=== PATIENT | female | born 1985 ===

== ENCOUNTER 2016-09-14 09:48 | Emergency (ER) | payer OTHER ==
[2016-09-14 10:09] VITALS: O2SAT 99
[2016-09-14] MEDS ORDERED: Iohexol 240 (50 ml) PO STA (10:44)
[2016-09-14] MEDS ORDERED: Sodium Chloride 0.9% 1,000 ML IV STA (10:45)
[2016-09-14] MEDS ORDERED: Iohexol 240 (50 ml) ONE (11:18)
[2016-09-14] MEDS ORDERED: Sodium Chloride 0.9% 1,000 ML ONE (11:18)
[2016-09-14 11:22] LABS: BASO # 0.1 K/uL (0.0-0.2); BASO % 0.6 % (0.0-2.0); EOS # 0.2 K/uL (0.0-0.7); EOS % 1.8 % (0.0-4.0); HEMATOCRIT 36.5 % (34.0-47.0); LYMPH # 2.3 K/uL (1.0-4.3); LYMPH % 24.1 % (20.0-40.0); MEAN CELL VOLUME 81.1 fL (81.0-99.0); MEAN CORPUSCULAR HEMOGLOBIN 27.4 pg (27.0-31.0); MEAN CORPUSCULAR HGB CONC 33.7 g/dL (33.0-37.0); MEAN PLATELET VOLUME 8.7 fL (7.2-11.7); MONO # 0.6 K/uL (0.0-0.8); MONO % 6.4 % (0.0-10.0); RED CELL DISTRIBUTION WIDTH 12.7 % (11.5-14.5); WHITE BLOOD COUNT 9.4 K/uL (4.8-10.8)
[2016-09-14 11:27] LABS: CHLORIDE 101 mmol/L (98-107); POTASSIUM 3.8 mmol/L (3.6-5.2); SODIUM 138 mmol/L (132-148)
[2016-09-14 11:30] LABS: ALB/GLOB RATIO 1.2 (1.0-2.1); ALKALINE PHOSPHATASE 74 U/L (38-126); ALT/SGPT 77 U/L (9-52); AST/SGOT 61 U/L (14-36); BILIRUBIN,TOTAL 0.5 mg/dL (0.2-1.3); BLOOD UREA NITROGEN 11 mg/dL (7-17); CALCIUM 8.9 mg/dl (8.6-10.4); CARBON DIOXIDE 27 mmol/L (22-30); GFR AFRICAN-AMERICAN > 60; GLUCOSE,RANDOM 115 mg/dL (65-105); TOTAL PROTEIN 7.1 g/dL (6.3-8.3)
[2016-09-14 11:32] LABS: RBC URINE 1 /hpf (0-3); URINE BILIRUBIN NEGATIVE (NEGATIVE); URINE BLOOD NEGATIVE (NEGATIVE); URINE COLOR Yellow (YELLOW); URINE GLUCOSE (UA) NORMAL (Normal); URINE KETONE NEGATIVE (NEGATIVE); URINE LEUKOCYTE ESTERASE NEG Leu/uL (Negative); URINE PROTEIN NEGATIVE (NEGATIVE); URINE UROBILINOGEN NORMAL mg/dL (0.2-1.0); WBC URINE 1 /hpf (0-5)
--- NOTE | 2016-09-14 12:49 | C.PDOC ---
History Of Present Illness 31-year-old female, presents to the emergency department with complaints of five -day duration of left-sided abdominal pain that is associated with nausea. Patient denies vomiting, headaches, diarrhea, symptoms, back pain or any other associated symptoms. No other complaints at this time. Time Seen by Provider: 09/14/16 10:16 Chief Complaint (Nursing): Abdominal Pain History Per: Patient Past Medical History Reviewed: Historical Data, Nursing Documentation, Vital Signs Vital Signs: Last Vital Signs Temp 98.3 F 09/14/16 10:08 Pulse 88 09/14/16 10:08 Resp 20 09/14/16 10:08 BP 105/69 09/14/16 10:08 Pulse Ox 99 09/14/16 14:52 - [facility] Procedures LOW CERVICAL (10/11/12) Family History: States: No Known Family Hx - Social History Hx Tobacco Use: No Hx Alcohol Use: No Hx Substance Use: No - Immunization History Hx Tetanus Toxoid Vaccination: Yes Hx Influenza Vaccination: No Hx Pneumococcal Vaccination: No Review Of Systems Except As Marked, All Systems Reviewed And Found Negative. Constitutional: Negative for: Fever, Chills Cardiovascular: Negative for: Chest Pain Gastrointestinal: Positive for: Nausea, Abdominal Pain. Negative for: Vomiting , Diarrhea Genitourinary: Negative for: Dysuria, Vaginal Discharge, Vaginal Bleeding Physical Exam - Physical Exam Appears: Non-toxic, No Acute Distress Skin: Warm, Dry, No Rash Head: Atraumatic Eye(s): bilateral: Normal Inspection Nose: Normal Oral Mucosa: Moist Lips: Normal Appearing Neck: Normal ROM Chest: Symmetrical Cardiovascular: Rhythm Regular Respiratory: Normal Breath Sounds, No Accessory Muscle Use Gastrointestinal/Abdominal: Soft, Tenderness (mild, LLQ), No Guarding, No Rebound Extremity: Normal ROM Neurological/Psych: Oriented x3 ED Course And Treatment - Laboratory Results Result Diagrams: 09/14/16 11:16 09/14/16 11:16 O2 Sat by Pulse Oximetry: 99 - CT Scan/US CT abdomen/Pelvis Other Rad Studies (CT/US): Read By Radiologist, Radiology Report Reviewed CT/US Interpretation: Accession No. : [id number]. Patient Name / ID : CLARE HARTID / [id number]. Exam Date : 09/14/2016 13:34:06 ( Approved ). Study Comment : Sex / Age : F / 31Y. Creator : Susie Núñez. Dictator : Susie Núñez. Receptionist Doctor'S Office : Insurance Verifier : Susie Núñez. Approver2 : Report Date : 09/14/2016 14:07:30. My Comment : . PROCEDURE: CT Abdomen and Pelvis with contrast. HISTORY: LUQ and LLQ abd pain. COMPARISON: None. TECHNIQUE: Contrast dose: 100 Visipaque 320. Axial and reformatted coronal and sagittal CT images of the abdomen and pelvis were obtained after IV and oral contrast administration. Radiation dose: Total exam DLP = 615.91 mGy-cm. This CT exam was performed using one or more of the following dose reduction techniques: Automated exposure control, adjustment of the mA and/or kV according to patient size, and/or use of iterative reconstruction technique. FINDINGS: LOWER THORAX: Unremarkable. LIVER: Moderate hepatomegaly and moderate diffuse low-attenuation of the liver suggestive of fatty liver infiltration. GALLBLADDER AND BILE DUCTS: Unremarkable. PANCREAS: Unremarkable. No gross lesion or ductal dilatation. SPLEEN: Unremarkable. ADRENALS: Unremarkable. No mass. KIDNEYS AND URETERS: Unremarkable. No hydronephrosis. No solid mass. VASCULATURE: Unremarkable. No aortic aneurysm. BOWEL: Diffuse gastric wall thickening. There is also mildly dilated proximal small bowel loops demonstrate mild wall thickening. . No obstruction. No gross mural thickening. APPENDIX: Normal appendix. PERITONEUM: Unremarkable. No free fluid. No free air. LYMPH NODES: Unremarkable. No enlarged lymph nodes. BLADDER: Unremarkable. REPRODUCTIVE: Unremarkable. BONES: No acute fracture. OTHER FINDINGS: None. IMPRESSION: Mild diffuse gastric and proximal small bowel wall thickening suspicious for gastritis/ enteritis. Moderate hepatomegaly and findings suggestive of moderate steatosis. No evidence of cholecystitis pancreatitis or appendicitis. Progress Note: Labs are stable, CT abd/pelvis is negative for acute abnormalities. Patient will be d/c home with PMD/clinic follow up. Medical Decision Making Medical Decision Making: Plan: * CT Abd/Pel * CMP, Lipase * CBC * IVF * Urinalysis/HCG * Reassess and Disposition Disposition - Disposition Referrals: [facility] at [facility] [Outside] Disposition: HOME/ ROUTINE Disposition Time: 15:34 Condition: STABLE Additional Instructions: Follow up with PMD / Clinic within 1-2 days. Return to ED if feel worse. Prescriptions: Dicyclomine [Bentyl] 20 mg PO TID #30 tab Ondansetron ODT [Zofran ODT] 4 mg PO .Q4-6H PRN #20 odt PRN Reason: Nausea/Vomiting Instructions: Abdominal Pain (ED) Print Language: KISWAHILI - Clinical Impression Clinical Impression: Abdominal pain - Scribe Statement The provider has reviewed the documentation as recorded by the Andra Cortez All medical record entries made by the Bryiblaurita were at my direction and personally dictated by me. I have reviewed the chart and agree that the record accurately reflects my personal performance of the history, physical exam, medical decision making, and the department course for this patient. I have also personally directed, reviewed, and agree with the discharge instructions and disposition.
[2016-09-14] MEDS ORDERED: Iodixanol 320 MG/ML 100 ML BOTTLE IV ONE (13:22)
--- NOTE | 2016-09-14 14:09 | CT ---
PROCEDURE: CT Abdomen and Pelvis with contrast HISTORY: LUQ and LLQ abd pain COMPARISON: None. TECHNIQUE: Contrast dose: 100 Visipaque 320. Axial and reformatted coronal and sagittal CT images of the abdomen and pelvis were obtained after IV and oral contrast administration. Radiation dose: Total exam DLP = 615.91 mGy-cm. This CT exam was performed using one or more of the following dose reduction techniques: Automated exposure control, adjustment of the mA and/or kV according to patient size, and/or use of iterative reconstruction technique. FINDINGS: LOWER THORAX: Unremarkable. LIVER: Moderate hepatomegaly and moderate diffuse low-attenuation of the liver suggestive of fatty liver infiltration. GALLBLADDER AND BILE DUCTS: Unremarkable. PANCREAS: Unremarkable. No gross lesion or ductal dilatation. SPLEEN: Unremarkable. ADRENALS: Unremarkable. No mass. KIDNEYS AND URETERS: Unremarkable. No hydronephrosis. No solid mass. VASCULATURE: Unremarkable. No aortic aneurysm. BOWEL: Diffuse gastric wall thickening. There is also mildly dilated proximal small bowel loops demonstrate mild wall thickening. . No obstruction. No gross mural thickening. APPENDIX: Normal appendix. PERITONEUM: Unremarkable. No free fluid. No free air. LYMPH NODES: Unremarkable. No enlarged lymph nodes. BLADDER: Unremarkable. REPRODUCTIVE: Unremarkable. BONES: No acute fracture. OTHER FINDINGS: None. IMPRESSION: Mild diffuse gastric and proximal small bowel wall thickening suspicious for gastritis/ enteritis. Moderate hepatomegaly and findings suggestive of moderate steatosis. No evidence of cholecystitis pancreatitis or appendicitis.
[2016-09-14 15:36] VITALS: BP 113/77; PULSE 71; RESP 16; TEMP 97.3
== END 2016-09-14 15:55 | disposition home or self-care (01) ==
LOC: C.ER 09:48
DX: R10.32 Left lower quadrant pain (principal)
CPT/HCPCS: 74177; 80053; 81001; 83690; 84703; 85025; 96360; 99284; J7040; Q9966; Q9967

== ENCOUNTER 2016-12-02 12:54 | Emergency (ER) | payer OTHER ==
[2016-12-02 12:54] VITALS: BMI 29.5
[2016-12-02 13:06] VITALS: BP 109/75; TEMP 98.1; O2SAT 99
--- NOTE | 2016-12-02 13:38 | C.PDOC ---
History Of Present Illness 31 y/o female, who is reportedly appx 1 month , presents to emergency department with complaint of suprapubic abdominal pain and scant vaginal spotting. Patient also reports nausea. Denies fever, dysuria, or vomiting. Time Seen by Provider: 12/02/16 13:27 Chief Complaint (Nursing): Female Genitourinary History Per: Patient History/Exam Limitations: no limitations Onset/Duration Of Symptoms: Days Current Symptoms Are (Timing): Still Present Location Of Pain/Discomfort: Suprapubic Quality Of Discomfort: Cramping Associated Symptoms: Nausea. denies: Fever, Vomiting, Diarrhea Recent travel outside of the [place]: No Past Medical History Reviewed: Historical Data, Nursing Documentation, Vital Signs Vital Signs: Last Vital Signs Temp 98.1 F 12/02/16 13:01 Pulse 90 12/02/16 13:01 Resp 16 12/02/16 13:01 BP 109/75 12/02/16 13:01 Pulse Ox 99 12/02/16 15:11 - Medical History PMH: No Chronic Diseases - [facility] Procedures LOW CERVICAL (10/11/12) Family History: States: Unknown Family Hx - Social History Hx Tobacco Use: No Hx Alcohol Use: No Hx Substance Use: No - Immunization History Hx Tetanus Toxoid Vaccination: Yes Hx Influenza Vaccination: No Hx Pneumococcal Vaccination: No Review Of Systems Except As Marked, All Systems Reviewed And Found Negative. Constitutional: Negative for: Fever, Chills Respiratory: Negative for: Shortness of Breath, Wheezing Gastrointestinal: Positive for: Nausea, Abdominal Pain. Negative for: Vomiting , Diarrhea Genitourinary: Positive for: Vaginal Bleeding (spotting) Skin: Negative for: Rash Physical Exam - Physical Exam Appears: Non-toxic, No Acute Distress Skin: Warm, Dry Head: Atraumatic, Normacephalic Oral Mucosa: Moist Chest: Symmetrical Cardiovascular: Rhythm Regular Respiratory: Normal Breath Sounds, No Rales, No Rhonchi, No Wheezing Gastrointestinal/Abdominal: Soft, Tenderness (suprapubic, mild), No Guarding, No Rebound Back: Normal Inspection Extremity: Normal ROM, Capillary Refill (< 2 sec. ) Neurological/Psych: Oriented x3, Normal Speech, Normal Cognition ED Course And Treatment - Laboratory Results Result Diagrams: 12/02/16 14:53 12/02/16 14:53 Lab Interpretation: Normal O2 Sat by Pulse Oximetry: 99 (RA) Pulse Ox Interpretation: Normal - CT Scan/US Pelvic ultrasound Other Rad Studies (CT/US): Read By Radiologist, Radiology Report Reviewed CT/US Interpretation: Accession No. : [id number]. Patient Name / ID : CLARE HARTID / [id number]. Exam Date : 12/02/2016 14:24:59 ( Approved ). Study Comment : Sex / Age : F / 31Y. Creator : Sammi Cali MD. Dictator : Director Funds Development : Inside Sales Advertising Executive : Sammi Cali MD. Approver2 : Report Date : 12/02/2016 14:58:09. My Comment : . Indication: vaginal bleeding with pelvic pain. Comparison: None available. Technique: Transabdominal pelvic ultrasound. Findings: The uterus measures approximately 10.6 x 6.9 x 7.7 cm. Retroverted. Cervix length measures approximately 3.2 cm. There is a single intrauterine fetus present. 2 mm yolk sac. The gestational sac measures 2.6 cm and is compatible with a gestational age of 7 weeks 2 days. The crown-rump length measures 1.8 cm and is compatible with a gestational age of 8 weeks 2 days. There is heart motion which measured 158.8 BPM. The right ovary measures 4.3 x 3.1 x 3.5 cm. 2.4 x 2.1 x 1.9 cm hypoechoic avascular right renal lesion favored to represent a cyst. The left ovary measures 3.8 x 1.9 x 3.0 cm. Blood flow was demonstrated to both ovaries. Impression: Live single intrauterine with estimated gestational age 7 weeks 2 days by gestational sac calculation and 8 weeks 2 days by crown- rump length calculation. heart rate 158.8 bpm. 2.4 cm probable right ovarian cyst. Advise an anomaly screen at 16-18 weeks gestational age Progress Note: Labs, ultrasound ordered and reviewed. Reevaluation Time: 15:10 Reassessment Condition: Improved Disposition - Disposition Referrals: [facility] at [facility] [Outside] Disposition: HOME/ ROUTINE Disposition Time: 15:10 Condition: IMPROVED Forms: [facility] (Swedish) - Clinical Impression Clinical Impression: Early stage of - Scribe Statement The provider has reviewed the documentation as recorded by the Scribe Ronnie Galvez All medical record entries made by the Scribe were at my direction and personally dictated by me. I have reviewed the chart and agree that the record accurately reflects my personal performance of the history, physical exam, medical decision making, and the department course for this patient. I have also personally directed, reviewed, and agree with the discharge instructions and disposition.
[2016-12-02 14:32] LABS: RBC URINE 2 /hpf (0-3); URINE BACTERIA RARE (<OCC); URINE BILIRUBIN NEGATIVE (NEGATIVE); URINE BLOOD NEGATIVE (NEGATIVE); URINE COLOR Yellow (YELLOW); URINE GLUCOSE (UA) NORMAL (Normal); URINE KETONE NEGATIVE (NEGATIVE); URINE LEUKOCYTE ESTERASE NEG Leu/uL (Negative); URINE PROTEIN NEGATIVE (NEGATIVE); URINE UROBILINOGEN NORMAL mg/dL (0.2-1.0); WBC URINE 1 /hpf (0-5)
[2016-12-02 14:56] LABS: BASO # 0.1 K/uL (0.0-0.2); BASO % 0.8 % (0.0-2.0); EOS # 0.1 K/uL (0.0-0.7); EOS % 1.2 % (0.0-4.0); HEMATOCRIT 35.4 % (34.0-47.0); LYMPH # 2.6 K/uL (1.0-4.3); LYMPH % 25.3 % (20.0-40.0); MEAN CELL VOLUME 80.8 fL (81.0-99.0); MEAN CORPUSCULAR HEMOGLOBIN 28.3 pg (27.0-31.0); MEAN PLATELET VOLUME 8.2 fL (7.2-11.7); MONO # 0.8 K/uL (0.0-0.8); MONO % 7.5 % (0.0-10.0); NRBC % 0.2 % (0.0-2.0); RED CELL DISTRIBUTION WIDTH 13.6 % (11.5-14.5); WHITE BLOOD COUNT 10.2 K/uL (4.8-10.8)
--- NOTE | 2016-12-02 15:00 | US ---
Indication: vaginal bleeding with pelvic pain Comparison: None available. Technique: Transabdominal pelvic ultrasound Findings: The uterus measures approximately 10.6 x 6.9 x 7.7 cm. Retroverted. Cervix length measures approximately 3.2 cm. There is a single intrauterine fetus present. 2 mm yolk sac. The gestational sac measures 2.6 cm and is compatible with a gestational age of 7 weeks 2 days. The crown-rump length measures 1.8 cm and is compatible with a gestational age of 8 weeks 2 days. There is heart motion which measured 158.8 BPM. The right ovary measures 4.3 x 3.1 x 3.5 cm. 2.4 x 2.1 x 1.9 cm hypoechoic avascular right renal lesion favored to represent a cyst. The left ovary measures 3.8 x 1.9 x 3.0 cm. Blood flow was demonstrated to both ovaries. Impression: Live single intrauterine with estimated gestational age 7 weeks 2 days by gestational sac calculation and 8 weeks 2 days by crown-rump length calculation. heart rate 158.8 bpm. 2.4 cm probable right ovarian cyst. Advise an anomaly screen at 16-18 weeks gestational age
[2016-12-02 15:18] LABS: CHLORIDE 101 mmol/L (98-107); POTASSIUM 3.8 mmol/L (3.6-5.2); SODIUM 134 mmol/L (132-148)
[2016-12-02 15:20] LABS: AST/SGOT 24 U/L (14-36); BILIRUBIN,TOTAL 0.4 mg/dL (0.2-1.3); CARBON DIOXIDE 22 mmol/L (22-30); GFR AFRICAN-AMERICAN > 60
[2016-12-02 15:21] LABS: ALB/GLOB RATIO 1.2 (1.0-2.1); ALKALINE PHOSPHATASE 78 U/L (38-126); ALT/SGPT 32 U/L (9-52); BLOOD UREA NITROGEN 7 mg/dL (7-17); CALCIUM 8.4 mg/dl (8.6-10.4); GLUCOSE,RANDOM 100 mg/dL (65-105); TOTAL PROTEIN 6.8 g/dL (6.3-8.3)
[2016-12-02 15:46] VITALS: PULSE 86; RESP 18
== END 2016-12-02 15:46 | disposition home or self-care (01) ==
LOC: C.ER 12:54
DX: O26.851 Spotting complicating pregnancy, first trimester (principal); Z3A.08 8 weeks gestation of pregnancy

== ENCOUNTER 2017-01-15 17:01 | Emergency (ER) | payer OTHER ==
[2017-01-15 17:01] VITALS: BMI 31.2
[2017-01-15 17:05] VITALS: O2SAT 98
[2017-01-15] MEDS ORDERED: Sodium Chloride 0.9% 1,000 ML IV ONE (17:54)
[2017-01-15 18:06] LABS: RBC URINE 3 /hpf (0-3); URINE BACTERIA RARE (<OCC); URINE BILIRUBIN NEGATIVE (NEGATIVE); URINE BLOOD NEGATIVE (NEGATIVE); URINE CALCIUM OXALATE CRYSTALS MANY /hpf (<OCC); URINE COLOR Yellow (YELLOW); URINE GLUCOSE (UA) NORMAL (Normal); URINE KETONE NEGATIVE (NEGATIVE); URINE LEUKOCYTE ESTERASE NEG Leu/uL (Negative); URINE PROTEIN NEGATIVE (NEGATIVE); WBC URINE 3 /hpf (0-5)
[2017-01-15 18:13] LABS: BASO # 0.1 K/uL (0.0-0.2); BASO % 0.7 % (0.0-2.0); EOS # 0.1 K/uL (0.0-0.7); EOS % 1.3 % (0.0-4.0); HEMATOCRIT 33.3 % (34.0-47.0); LYMPH # 2.2 K/uL (1.0-4.3); LYMPH % 20.3 % (20.0-40.0); MEAN CELL VOLUME 81.8 fL (81.0-99.0); MEAN CORPUSCULAR HEMOGLOBIN 27.6 pg (27.0-31.0); MEAN CORPUSCULAR HGB CONC 33.8 g/dL (33.0-37.0); MEAN PLATELET VOLUME 8.4 fL (7.2-11.7); MONO # 0.6 K/uL (0.0-0.8); MONO % 5.8 % (0.0-10.0); RED CELL DISTRIBUTION WIDTH 13.3 % (11.5-14.5)
[2017-01-15 18:22] LABS: SODIUM 135 mmol/L (132-148)
[2017-01-15 18:23] LABS: POTASSIUM 3.2 mmol/L (3.6-5.2)
[2017-01-15 18:25] LABS: ALB/GLOB RATIO 1.2 (1.0-2.1); ALKALINE PHOSPHATASE 66 U/L (38-126); ALT/SGPT 37 U/L (9-52); AST/SGOT 23 U/L (14-36); BILIRUBIN,TOTAL 0.4 mg/dL (0.2-1.3); BLOOD UREA NITROGEN 5 mg/dL (7-17); CARBON DIOXIDE 21 mmol/L (22-30); GFR AFRICAN-AMERICAN > 60; GLUCOSE,RANDOM 156 mg/dL (65-105); TOTAL PROTEIN 6.7 g/dL (6.3-8.3)
[2017-01-15 18:26] LABS: CALCIUM 9.1 mg/dl (8.6-10.4)
[2017-01-15] MEDS ORDERED: Potassium Chloride 20 mEq ER Tab PO STA (18:27)
[2017-01-15 18:28] LABS: CHLORIDE 103 mmol/L (98-107)
[2017-01-15] MEDS ORDERED: Potassium Chloride 20 mEq ER Tab PO ONE (18:36)
--- NOTE | 2017-01-15 19:15 | C.PDOC ---
History Of Present Illness 31 yr old female 14 weeks presents to the ER with complaints of lower back pain for the last few days. Patient states she was seen by her PMD and was treated for a UTI. Patient states she feels the pain when she walks or bends down. Currently denies dysuria, trauma, fever, abdominal pain, diarrhea or urinary frequency. Time Seen by Provider: 01/15/17 17:20 Chief Complaint (Nursing): Back Pain History Per: Patient History/Exam Limitations: no limitations Onset/Duration Of Symptoms: Days Past Medical History Reviewed: Historical Data, Nursing Documentation, Vital Signs Vital Signs: Last Vital Signs Temp 97.5 F L 01/15/17 20:53 Pulse 78 01/15/17 20:53 Resp 16 01/15/17 20:53 BP 115/85 01/15/17 20:53 Pulse Ox 98 01/15/17 20:53 - [facility] Procedures LOW CERVICAL (10/11/12) Family History: States: No Known Family Hx - Social History Hx Tobacco Use: No Hx Alcohol Use: No Hx Substance Use: No - Immunization History Hx Tetanus Toxoid Vaccination: Yes Hx Influenza Vaccination: No Hx Pneumococcal Vaccination: No Review Of Systems Except As Marked, All Systems Reviewed And Found Negative. Constitutional: Negative for: Fever Gastrointestinal: Negative for: Abdominal Pain, Diarrhea Genitourinary: Negative for: Dysuria, Frequency Musculoskeletal: Positive for: Back Pain (Lower ) Physical Exam - Physical Exam Appears: Non-toxic, No Acute Distress Skin: Warm, Dry, No Rash Head: Atraumatic, Normacephalic Eye(s): bilateral: Normal Inspection, EOMI Nose: Normal Oral Mucosa: Moist Neck: Normal, Normal ROM, No Midline Cervical Tenderness, Supple Chest: Symmetrical, No Tenderness Cardiovascular: Rhythm Regular, No Murmur Respiratory: Normal Breath Sounds, No Rales, No Rhonchi, No Stridor, No Wheezing Gastrointestinal/Abdominal: Soft, Tenderness (Mild superpubic tenderness), No Guarding, No Rebound Back: No CVA Tenderness, No Vertebral Tenderness, Other ((+) Lower paralumbar tenderness) Extremity: Normal ROM, No Swelling Neurological/Psych: Oriented x3, Normal Speech, Normal Motor, Normal Sensation ED Course And Treatment - Laboratory Results Result Diagrams: 01/15/17 18:08 01/15/17 18:08 O2 Sat by Pulse Oximetry: 98 (RA) Pulse Ox Interpretation: Normal - CT Scan/US US - Pelvis Other Rad Studies (CT/US): Read By Radiologist, Radiology Report Reviewed CT/US Interpretation: EXAM: US After First Trimester, Transabdominal. EXAM DATE/TIME: 01/15/2017 5:54 PM. CLINICAL HISTORY: 31 years old, female; Pain; complicated by abdominal or pelvic pain; Lower; Second. trimester; Gestational age or lmp: 10-23-2016; ; Additional info: Pain. Prior 12-02-2016. TECHNIQUE: Real-time transabdominal obstetrical ultrasound of the maternal pelvis and a second or third. trimester with image documentation. COMPARISON: Prior images are not available for review. Correlation is made with a report dated 12/02/16. FINDINGS : Fetus: There is a single living intrauterine gestation in transverse presentation. There is a heart. rate of 151 beats per minute. Placenta: Placenta is anterior with no previa or abruption. Amniotic fluid: Amnionic fluid volume appears normal. Anatomy: Early gestational age limits evaluation of anatomy. Small amount of fluid is seen in. stomach and bladder. BIOMETRICS. Gestational age by US: 15 week 3 day. EFW: 121 g. HC: 11.51 cm, 15 weeks 4 days. AC: 8.83 cm, 15 weeks 0 days. FL: 1.85 cm, 15 weeks 3 days. MATERNAL: Uterus: Uterus measures 18.5 x 9.8 x 12.3 cm. Cervix measures 4 cm in length. Ovaries: Ovaries are unremarkable. There is flow in both ovaries on Doppler imaging. Free fluid: There is no free fluid. IMPRESSION: 15 week 3 day single living intrauterine gestation, estimated date of delivery. 07/06/17; limited evaluation of anatomy due to early gestational age; no ovarian torsion Progress Note: On re-evaluation, pain improved. Pt was instructed to follow up with [facility] PILOT/NAVIGATOR/DDS OPERATOR in 1-2 days. Return to ER if symptoms persist or worsen. Medical Decision Making Medical Decision Making: PLAN: * US - Pelvis * CBC * CMP * BETA * Urinalysis * Potassium Chloride PO * Tylenol PO * Sodium Chloride IV Disposition - Disposition Disposition: HOME/ ROUTINE Disposition Time: 20:41 Condition: STABLE Additional Instructions: Toy a michael lawler o la clnica en 1-3 tran sin falta, para mas evaluacin. [place] los medicamentos jaz indicado. Volver a la roderick de emergencia en cualquier momento si los sntomas persisten o empeoran. Prescriptions: Acetaminophen [Tylenol 325mg tab] 650 mg PO Q4 PRN #20 tab PRN Reason: Pain, Mild (1-3) Instructions: Acute Low Back Pain (ED) Forms: [facility] (Irish) Print Language: BERMUDIAN - Clinical Impression Clinical Impression: Low back pain - PA / MICA LAMINATING MACHINE FEEDER / Resident Statement MD/DO has reviewed & agrees with the documentation as recorded. - Scribe Statement The provider has reviewed the documentation as recorded by the Scribe Priyanka Watkins All medical record entries made by the Scribe were at my direction and personally dictated by me. I have reviewed the chart and agree that the record accurately reflects my personal performance of the history, physical exam, medical decision making, and the department course for this patient. I have also personally directed, reviewed, and agree with the discharge instructions and disposition.
--- NOTE | 2017-01-15 20:28 | US ---
EXAM: US After First Trimester, Transabdominal EXAM DATE/TIME: 01/15/2017 5:54 PM CLINICAL HISTORY: 31 years old, female; Pain; complicated by abdominal or pelvic pain; Lower; Second trimester; Gestational age or lmp: 10-23-2016; ; Additional info: Pain. Prior 12-02-2016 TECHNIQUE: Real-time transabdominal obstetrical ultrasound of the maternal pelvis and a second or third trimester with image documentation. COMPARISON: Prior images are not available for review. Correlation is made with a report dated 12/02/16 FINDINGS: Fetus: There is a single living intrauterine gestation in transverse presentation. There is a heart rate of 151 beats per minute. Placenta: Placenta is anterior with no previa or abruption. Amniotic fluid: Amnionic fluid volume appears normal Anatomy: Early gestational age limits evaluation of anatomy. Small amount of fluid is seen in stomach and bladder. BIOMETRICS Gestational age by US: 15 week 3 day EFW: 121 g HC: 11.51 cm, 15 weeks 4 days AC: 8.83 cm, 15 weeks 0 days FL: 1.85 cm, 15 weeks 3 days MATERNAL: Uterus: Uterus measures 18.5 x 9.8 x 12.3 cm. Cervix measures 4 cm in length Ovaries: Ovaries are unremarkable. There is flow in both ovaries on Doppler imaging. Free fluid: There is no free fluid. IMPRESSION: 15 week 3 day single living intrauterine gestation, estimated date of delivery 07/06/17; limited evaluation of anatomy due to early gestational age; no ovarian torsion
[2017-01-15 20:54] VITALS: BP 115/85; PULSE 78; RESP 16; TEMP 97.5
== END 2017-01-15 20:53 | disposition home or self-care (01) ==
LOC: C.ER 17:01
DX: M54.5 Low back pain (principal)
CPT/HCPCS: 76815; 80053; 81001; 84702; 85025; 86850; 86900; 87086; 96360; 99284; J7040

== ENCOUNTER 2017-04-27 10:03 | Emergency (ER) | payer SELFPAY, OTHER ==
[2017-04-27 10:18] VITALS: TEMP 98.4
--- NOTE | 2017-04-27 11:22 | C.PDOC ---
History Of Present Illness 32 y/o female currently 26 weeks presents to ED with complaints of cough for 2 weeks with associated post tussive vomiting. Patient also reports chest pain when coughing worse at night and states she did not take any medication because she did not know what to take since she is . Patient denies fever, dysuria, vaginal bleeding, abdominal pain or any other complaints at this time. Time Seen by Provider: 04/27/17 10:41 Chief Complaint (Nursing): Cough, Cold, Congestion History Per: Patient History/Exam Limitations: no limitations Onset/Duration Of Symptoms: Days Current Symptoms Are (Timing): Still Present Past Medical History Reviewed: Historical Data, Nursing Documentation, Vital Signs Vital Signs: Last Vital Signs Temp 98.4 F 04/27/17 12:36 Pulse 82 04/27/17 12:36 Resp 14 04/27/17 12:36 BP 102/68 04/27/17 12:36 Pulse Ox 99 04/28/17 23:20 Surgical History: No Surg Hx - [facility] Procedures LOW CERVICAL (10/11/12) Family History: States: No Known Family Hx - Social History Hx Tobacco Use: No Hx Alcohol Use: No Hx Substance Use: No - Immunization History Hx Tetanus Toxoid Vaccination: Yes Hx Influenza Vaccination: No Hx Pneumococcal Vaccination: No Review Of Systems Constitutional: Negative for: Fever, Chills Cardiovascular: Positive for: Chest Pain Respiratory: Positive for: Cough. Negative for: Shortness of Breath Gastrointestinal: Positive for: Vomiting. Negative for: Nausea Genitourinary: Negative for: Dysuria, Vaginal Discharge, Vaginal Bleeding Skin: Negative for: Rash Physical Exam - Physical Exam Additional Physical Exam Comments: Constitutional: No acute distress. WDWN. Head: Normocephalic. Atraumatic. Eyes: PERRL. EOMI. ENT: Moist mucous membranes. nasal congestion Neck: Supple. Cardiovascular: Regular rate and rhythm. Chest: No tenderness. Respiratory: Clear to auscultation bilaterally. GI: gravid, non-tender. Back: No CVA and no mid-line tenderness. Musculoskeletal: No tenderness or swelling of extremities. No calf tenderness Skin: No rash. Neurologic: Alert, no focal deficit. ED Course And Treatment O2 Sat by Pulse Oximetry: 99 (RA) Pulse Ox Interpretation: Normal Medical Decision Making Medical Decision Making: Plan: Tylenol 1205 pm pt with cough with ylellowish sputum x 2 days and nasal congestion, d/ c with tylenol and claritin . Disposition Counseled Patient/Family Regarding: Diagnosis, Need For Followup, Rx Given - Disposition Referrals: [facility] at [facility] [Outside] Disposition: HOME/ ROUTINE Disposition Time: 12:28 Condition: STABLE Additional Instructions: Por favor tome Tylenol para el dolor; [place] Claritin ama vez al da para ayudar a secar las secreciones nasales y reducir la tos. Seguimiento en la clnica m dica. Vuelva a la roderick de emergencias para cualquier dolor abdominal, sangrado vaginal o cualquier otra preocupacin. Zoila mayor cantidad de lquidos Prescriptions: Acetaminophen [Tylenol 325mg tab] 650 mg PO Q6 #30 tab Loratadine [Claritin] 10 mg PO DAILY #10 tab Instructions: Upper Respiratory Infection (ED) Forms: Gen Discharge Inst Georgian, [employer] Connect (Georgian) Print Language: KHMER - Clinical Impression Clinical Impression: Upper respiratory infection - PA / FACTORY WORKER / Resident Statement MD/DO has reviewed & agrees with the documentation as recorded. - Scribe Statement The provider has reviewed the documentation as recorded by the Andra Tripathi All medical record entries made by the Andra were at my direction and personally dictated by me. I have reviewed the chart and agree that the record accurately reflects my personal performance of the history, physical exam, medical decision making, and the department course for this patient. I have also personally directed, reviewed, and agree with the discharge instructions and disposition.
[2017-04-27 12:37] VITALS: BP 102/68; PULSE 82; RESP 14
[2017-04-28 23:20] VITALS: O2SAT 99
== END 2017-04-27 12:58 | disposition home or self-care (01) ==
LOC: C.ER 10:03
DX: J06.9 Acute upper respiratory infection, unspecified (principal)

== ENCOUNTER 2017-06-29 05:59 | Inpatient (IN) | payer MEDICAID ==
[2017-06-29 06:19] VITALS: BMI 32.5
[2017-06-29] MEDS ORDERED: Sodium Citrate/Citric Acid 15 ml Sol PO ONE (06:19)
[2017-06-29] MEDS ORDERED: Lactated Ringer's 1,000 ML IV SCH (06:30)
[2017-06-29 06:54] LABS: BASO # 0.1 K/uL (0.0-0.2); BASO % 0.6 % (0.0-2.0); EOS # 0.1 K/uL (0.0-0.7); HEMOGLOBIN 11.3 g/dL (11.0-16.0); LYMPH # 2.3 K/uL (1.0-4.3); LYMPH % 24.2 % (20.0-40.0); MEAN CORPUSCULAR HEMOGLOBIN 27.3 pg (27.0-31.0); MEAN CORPUSCULAR HGB CONC 34.6 g/dL (33.0-37.0); MEAN PLATELET VOLUME 9.6 fL (7.2-11.7); MONO # 0.7 K/uL (0.0-0.8); MONO % 7.6 % (0.0-10.0); NEUT # 6.2 K/uL (1.8-7.0); NEUT % 66.6 % (50.0-75.0); RBC 4.14 Mil/uL (3.80-5.20); RED CELL DISTRIBUTION WIDTH 15.8 % (11.5-14.5); WHITE BLOOD COUNT 9.4 K/uL (4.8-10.8)
[2017-06-29 06:57] LABS: SQUAMOUS EPITHIAL 1 /hpf (0-5); URINE BACTERIA RARE (<OCC); URINE BILIRUBIN NEGATIVE (NEGATIVE); URINE BLOOD NEGATIVE (NEGATIVE); URINE CLARITY Clear (Clear); URINE COLOR Straw (YELLOW); URINE GLUCOSE (UA) NORMAL (Normal); URINE LEUKOCYTE ESTERASE NEG Leu/uL (Negative); URINE PROTEIN NEGATIVE (NEGATIVE); URINE UROBILINOGEN NORMAL mg/dL (0.2-1.0)
[2017-06-29] MEDS ORDERED: Oxytocin 20 units in LR 2,000 ML IV ONE (07:02)
[2017-06-29] MEDS ORDERED: Sodium Citrate/Citric Acid 15 ml Sol ONE (07:03)
[2017-06-29] MEDS ORDERED: cefOXitin IV 2 gm in Saline 2 GM/50 ML BAG IVPB ONE (07:04)
[2017-06-29 07:13] LABS: BLOOD UREA NITROGEN 11 mg/dL (7-17); CALCIUM 9.4 mg/dl (8.6-10.4); GFR AFRICAN-AMERICAN > 60; GFR NON-AFRICAN AMERICAN > 60
[2017-06-29] MEDS ORDERED: Morphine 4 MG/ML VIAL ONE (07:56)
[2017-06-29] MEDS ORDERED: cefOXitin 2 GM in Sodium Chloride 0.9% 100 ML IVPB ONE (07:56)
[2017-06-29] MEDS ORDERED: Morphine 1 mg/ml preservative-free Inj(Duramorph) ONE (07:56)
[2017-06-29] MEDS ORDERED: ePHEDrine 50 mg/ml Inj ONE (08:05)
[2017-06-29] MEDS ORDERED: Oxytocin 10 Units/ml Inj ONE (09:10)
[2017-06-29] MEDS ORDERED: Oxycodone/Acetaminophen 5/325 mg Tab PO PRN (10:27)
--- NOTE | 2017-06-29 10:35 | PCM.SURG1 ---
Surgeon's Initial Post Op Note - Surgeon's Notes Surgeon: Piper Smith MD [employer] Internship: Jonathan Farias MD. Alana Carmona, MS-3 Type of Anesthesia: Spinal Anesthesia Administered By: Greg Zaragoza DO Pre-Operative Diagnosis: 39 weeks, previous section; h/o LGA; Anemia Operative Findings: Live male infant, weight 8lb 6oz; ROT position, with compound presentation, 's 9/9. FLORENTINO window. Normal uterus; normal fallopian tubes and ovaries bilaterally Post-Operative Diagnosis: Same Operation Performed: Repeat LTCS Specimen/Specimens Removed: None Estimated Blood Loss: EBL {In ML}: 800 (U.O. 600 mL, clear. IVFs 2700 mL LR 40 Units pitocintotal) Blood Products Given: N/A Drains Used: No Drains Post-Op Condition: Good Date of Surgery/Procedure: 06/29/17 Time of Surgery/Procedure: 10:20
[2017-06-29] MEDS ORDERED: cefOXitin 2 GM in Sodium Chloride 0.9% 50 ML IV SCH (12:00)
[2017-06-29] MEDS ORDERED: cefOXitin IV 2 gm in Saline 2 GM in Sodium Chloride 0.9% 50 ML IV SCH (12:00)
[2017-06-29] MEDS: cefOXitin 2 GM in Sodium Chloride 0.9% 50 ML IV SCH ×2 (14:40→22:25)
[2017-06-29] MEDS: Simethicone 80 mg Chewtab PO SCH ×3 (14:48→22:24)
[2017-06-30 07:08] LABS: BASO # 0.1 K/uL (0.0-0.2); BASO % 0.6 % (0.0-2.0); EOS % 0.3 % (0.0-4.0); HEMOGLOBIN 11.5 g/dL (11.0-16.0); LYMPH # 1.7 K/uL (1.0-4.3); LYMPH % 11.3 % (20.0-40.0); MEAN CELL VOLUME 78.5 fL (81.0-99.0); MEAN CORPUSCULAR HEMOGLOBIN 26.6 pg (27.0-31.0); MEAN CORPUSCULAR HGB CONC 33.8 g/dL (33.0-37.0); MONO # 0.9 K/uL (0.0-0.8); MONO % 5.8 % (0.0-10.0); NEUT # 12.3 K/uL (1.8-7.0); RBC 4.31 Mil/uL (3.80-5.20); RED CELL DISTRIBUTION WIDTH 15.7 % (11.5-14.5); WHITE BLOOD COUNT 15.1 K/uL (4.8-10.8)
--- NOTE | 2017-06-30 08:35 | OP ---
PROCEDURE DATE: 06/29/2017 SURGEON: Piper Smith MD OPERATORS SCHOOL MANAGER: Jonathan Farias MD SECOND ARTS ADMINISTRATOR: Alana Alexandra MS-3. TYPE OF ANESTHESIA: Spinal. ANESTHESIOLOGIST: Greg Zaragoza DO PREOPERATIVE DIAGNOSIS: A 39 weeks' gestation, previous Caesarean section, history of large for gestational age infant; anemia. POSTOPERATIVE DIAGNOSIS: A 39 weeks' gestation, previous section, history of large for gestational age infant; anemia; uterine window. OPERATIVE FINDINGS: Live male from the right occipital transverse position, weight 8 pounds 6 ounces. Compound presentation of the right hand. 's were 9 at 9 and 1 at 5 minutes, respectively. There was a lower uterine segment window noted, approximately 6 cm. Normal uterus; normal fallopian tubes and ovaries, bilaterally. SPECIMENS: None. ESTIMATED BLOOD LOSS: 800 mL URINE OUTPUT: 600 mL of clear urine. IV FLUIDS: 2700 mL of lactated Ringer's with a total of 40 units of Pitocin. BLOOD PRODUCTS: None. COMPLICATIONS: None. DESCRIPTION OF PROCEDURE: The patient was taken to the operating room after having obtained informed consent for the anticipated procedure. This included a discussion of possible risks and complications including, but not limited to infection requiring antibiotics, hemorrhage requiring blood transfusion, repair of any damage to internal organs, possible Caesarean hysterectomy. The patient expressed an understanding and agreed; her questions were answered. Consent forms were signed, dated, witnessed and placed in the chart. The patient received Mefoxin 2 grams en route to the operating room. The Carey catheter had been inserted under sterile conditions. The patient was escorted to the operating room. On the operating room table, spinal anesthesia was administered without incident. She was immediately repositioned into supine position with a left lateral tilt. The abdomen was prepped and she was subsequently draped in usual sterile fashion. After assuring an adequate level of anesthesia using a scalpel incision, Pfannenstiel incision was made in the previous scar. The incision was carried down through the subcutaneous tissue to the level of fascia using the Bovie. The fascia was identified. It was nicked in the midline and the incision was extended bilaterally using the Bovie electrocautery. The rectus muscle was then dissected off the overlying fascia. Using a scalpel, the rectus muscle was in the midline and the parietal peritoneum was entered via sharp dissection. The vesicouterine reflection was identified and bladder flap was created. At this time the uterine window was noted. There was no need to perform a surgical incision on the uterus and the uterine incision was made bluntly. Amniotomy was performed. A moderate amount of clear amniotic fluid was retrieved. Delivery of the with findings as above then ensued without incident. Once on the operative field, the 's mouth and nose were bulb suctioned as the umbilical cord was doubly clamped and cut. The was handed off the operative field to the credit risk analytics manager in attendance. By manual extraction, the placenta was delivered. It was grossly intact with three vessels present in the cord. The uterus was then exteriorized for closure. This was done in two layers using 0 Vicryl suture. The first layer was a running interlocking manner. The second layer was a horizontal imbricating manner. Attention was then directed to the posterior aspect of the uterus - findings as above. Copious irrigation was performed. Surgicel was then placed along the uterine incision and the bladder flap was reapproximated using 2-0 chromic in a running fashion. The uterus was returned to the abdominal cavity and the paracolic gutters were cleared of all debris. The parietal peritoneum was then reapproximated using 2-0 chromic in a running fashion and the rectus muscle was reapproximated in the midline also using 2-0 chromic in a running fashion. The fascia was reapproximated using 1-0 Vicryl in a running fashion in one strand. The subcutaneous tissue was reapproximated using 0 plain catgut in a running manner and the skin was reapproximated using 4-0 Vicryl on a Ishan needle in a subcuticular manner. Steri-Strips were applied and a pressure dressing was applied. The patient was then repositioned in a frog-leg manner. Bimanual massage was performed and the uterus was evacuated of additional clots and debris. The uterus was contracted and firm approximately 2 fingerbreadths below the umbilicus. The patient tolerated the procedure well. She was transferred back to [facility] in stable condition. had been transferred to the [facility] also in stable condition. Dr. Jonathan Farias was present for the entire procedure. His presence was necessary for the followin assuring adequate visualization of the operative field at all times 2) the safe and atraumatic delivery of the 3) assuring adequate hemostasis at all times Piper Jeet Smith MD BRYAN
[2017-06-30] MEDS: Simethicone 80 mg Chewtab PO SCH ×4 (10:20→22:02)
[2017-06-30] MEDS: Prenatal Multivit/Folic Acid/Iron Tab PO SCH (10:22)
[2017-06-30] MEDS: Oxycodone/Acetaminophen 5/325 mg Tab PO PRN ×2 (17:04→23:36)
[2017-07-01] MEDS: Oxycodone/Acetaminophen 5/325 mg Tab PO PRN (06:11)
[2017-07-01] MEDS: Simethicone 80 mg Chewtab PO SCH ×3 (10:34→21:29)
[2017-07-01] MEDS: Prenatal Multivit/Folic Acid/Iron Tab PO SCH (10:35)
--- NOTE | 2017-07-02 07:59 | CP.PCM.DIS ---
Provider - Provider Date of Admission: 06/29/17 05:59 Attending physician: Candis Macedo MD Time Spent in preparation of Discharge (in minutes): 35 Hospital Course - Lab Results Lab Results: Most Recent Lab Values WBC 15.1 K/uL (4.8-10.8) H D 06/30/17 06:58 RBC 4.31 Mil/uL (3.80-5.20) 06/30/17 06:58 Hgb 11.5 g/dL (11.0-16.0) 06/30/17 06:58 Hct 33.9 % (34.0-47.0) L 06/30/17 06:58 MCV 78.5 fL (81.0-99.0) L 06/30/17 06:58 MCH 26.6 pg (27.0-31.0) L 06/30/17 06:58 MCHC 33.8 g/dL (33.0-37.0) 06/30/17 06:58 RDW 15.7 % (11.5-14.5) H 06/30/17 06:58 Plt Count 202 K/uL (130-400) 06/30/17 06:58 MPV 9.0 fL (7.2-11.7) 06/30/17 06:58 Neut % (Auto) 82.0 % (50.0-75.0) H 06/30/17 06:58 Lymph % (Auto) 11.3 % (20.0-40.0) L 06/30/17 06:58 [place] % (Auto) 5.8 % (0.0-10.0) 06/30/17 06:58 Eos % (Auto) 0.3 % (0.0-4.0) 06/30/17 06:58 Baso % (Auto) 0.6 % (0.0-2.0) 06/30/17 06:58 Neut # (Auto) 12.3 K/uL (1.8-7.0) H 06/30/17 06:58 Lymph # (Auto) 1.7 K/uL (1.0-4.3) 06/30/17 06:58 [place] # (Auto) 0.9 K/uL (0.0-0.8) H 03/07/18 06:58 Eos # (Auto) 0.0 K/uL (0.0-0.7) 06/30/17 06:58 Baso # (Auto) 0.1 K/uL (0.0-0.2) 06/30/17 06:58 Sodium 137 mmol/L (132-148) 06/29/17 06:49 Potassium 3.9 mmol/L (3.6-5.2) 06/29/17 06:49 Chloride 105 mmol/L (98-107) 06/29/17 06:49 Carbon Dioxide 22 mmol/L (22-30) 06/29/17 06:49 Anion Gap 14 (10-20) 06/29/17 06:49 BUN 11 mg/dL (7-17) 06/29/17 06:49 Creatinine 0.7 mg/dL (0.7-1.2) 06/29/17 06:49 Est GFR ( Amer) > 60 06/29/17 06:49 Est GFR (Non-Af Amer) > 60 06/29/17 06:49 Random Glucose 102 mg/dL (65-105) 06/29/17 06:49 Calcium 9.4 mg/dl (8.6-10.4) 06/29/17 06:49 Urine Color Straw (YELLOW) 06/29/17 06:49 Urine Clarity Clear (Clear) 06/29/17 06:49 Urine pH 6.0 (5.0-8.0) 06/29/17 06:49 Ur Specific [place] 1.006 (1.003-1.030) 06/29/17 06:49 Urine Protein Negative mg/dL (NEGATIVE) 06/29/17 06:49 Urine Glucose (UA) Normal mg/dL (Normal) 06/29/17 06:49 Urine Ketones Negative mg/dL (NEGATIVE) 06/29/17 06:49 Urine Blood Negative (NEGATIVE) 06/29/17 06:49 Urine Nitrate Negative (NEGATIVE) 06/29/17 06:49 Urine Bilirubin Negative (NEGATIVE) 06/29/17 06:49 Urine Urobilinogen Normal mg/dL (0.2-1.0) 06/29/17 06:49 Ur Leukocyte Esterase Neg G[place]berto/uL (Negative) 06/29/17 06:49 Ur Squamous Epith Cells 1 /hpf (0-5) 06/29/17 06:49 Urine Bacteria Rare (<OCC) 06/29/17 06:49 RPR Nonreactive (NONREACTIVE) 06/29/17 06:49 Blood Type O POSITIVE 06/29/17 06:00 Antibody Screen Negative 06/29/17 06:00 - Hospital Course Hospital Course: Patient is a 32 y/o female who presented at 39 weeks gestation for scheduled repeat . C/s performed due to history of c/s x 2, LGA x 2, anemia. Hospital course: A live male weighing 8lb 6oz was delivered by c/s in ROT position with compound presentation APGARs 9/9. Lower uterine segment window noted. Patient tolerated the procedure well, there were no post-op complications. Today is POD 3: patient feels well, is ambulating, is breast feeding, is urinating without difficulty or pain, and has passed flatus, has had BM. Pt complains of a mild headache and pain at the incision site, well controlled with current pain regimen. She is now Pt was given instructions for f/u in clinic in 2 weeks, instructed to avoid intercourse for 6 weeks, was given prescription for pain medicine, instructed to take tylenol, motrin, or aleve for her headache. All questions were answered to her satisfaction, she was discharged to home. Patient agrees with plan and medications. Discharge Exam - Head Exam Head Exam: ATRAUMATIC, NORMOCEPHALIC - Eye Exam Eye Exam: EOMI, Normal appearance, PERRL Pupil Exam: NORMAL ACCOMODATION - ENT Exam ENT Exam: Mucous Membranes Moist - Respiratory Exam Respiratory Exam: Clear to PA & Lateral, NORMAL BREATHING PATTERN - Cardiovascular Exam Cardiovascular Exam: RRR, +S1, +S2 - GI/Abdominal Exam GI & Abdominal Exam: Normal Bowel Sounds, Soft, Tenderness (mild). absent: Firm , Guarding, Rebound, Rigid Additional comments: Incision CDI Fundus firm, below umbilicus - Extremities Exam Extremities exam: normal inspection - Neurological Exam Neurological exam: Alert, CN II-XII Intact, Oriented x3 - Psychiatric Exam Psychiatric exam: Normal Affect, Normal Mood - Skin Skin Exam: Dry, Intact, Normal Color Discharge Plan - Follow Up Plan Condition: GOOD Disposition: HOME/ ROUTINE Additional Instructions: 1. Continue to take pain medications as needed 2. Pelvic rest for 6 weeks; no intercourse, tampons, or anything inserted into the vagina 3. Follow up with at the [facility] clinic in two weeks, and again in six weeks 4. For any new or worsening concerns, contact your primary care doctor immediately or return to the ER
[2017-07-02 10:04] VITALS: BP 109/76; PULSE 87; RESP 18; TEMP 98.1; O2SAT 99
[2017-07-02] MEDS: Prenatal Multivit/Folic Acid/Iron Tab PO SCH (10:28)
[2017-07-02] MEDS: Simethicone 80 mg Chewtab PO SCH (10:29)
[2017-07-02] MEDS ORDERED: Influenza Vaccine 60 mcg/0.5 mL SYR (4YR UP) IM ONE (10:45)
== END 2017-07-02 13:00 | disposition home or self-care (01) | DRG 370 ==
LOC: C.4M 05:59 → C.4D 06:00 → C.4LDOR 06:00 → C.4M 13:50
PROVIDERS: ADMIT Obstetrics & Gynecology; ATTEND Obstetrics & Gynecology
PROC: 10D00Z1 Extraction of Products of Conception, Low, Open Approach (ICD-10-PCS; principal; 2017-06-29)
DX: O34.211 Maternal care for low transverse scar from previous cesarean delivery (principal); O99.02 Anemia complicating childbirth; O32.6XX0 Maternal care for compound presentation, not applicable or unspecified; Z3A.39 39 weeks gestation of pregnancy; Z37.0 Single live birth

== ENCOUNTER 2017-07-24 18:26 | Emergency (ER) | payer OTHER ==
[2017-07-24 18:26] VITALS: BMI 32.5
[2017-07-24 18:32] VITALS: BP 105/76; PULSE 98; RESP 17; TEMP 98.4; O2SAT 98
--- NOTE | 2017-07-24 19:00 | C.PDOC ---
History Of Present Illness 32 yo female post- s/p on 06/29/17 come in for evaluation of small area of swelling, pain over incision noted for past few days. Pt admits, had incision closed with absorbable sutures, Pt also admits, (+) constipation . Otherwise, pt denies fever, chills, wound draining, redness or any other active complaints. Ambulate to Ed for evaluation, not in nay apparent distress. Time Seen by Provider: 07/24/17 18:33 Chief Complaint (Nursing): Wound Check History Per: Patient Past Medical History Reviewed: Historical Data, Nursing Documentation, Vital Signs Vital Signs: Last Vital Signs Temp 98.4 F 07/24/17 18:29 Pulse 98 H 07/24/17 18:29 Resp 17 07/24/17 18:29 BP 105/76 07/24/17 18:29 Pulse Ox 98 07/24/17 18:29 - Medical History PMH: No Chronic Diseases Denies: Depression, Diabetes, HTN Surgical History: - [facility] Procedures EXTRACTION OF POC, LOW CERVICAL, OPEN APPROACH (06/29/17) LOW CERVICAL (10/11/12) Family History: States: Unknown Family Hx - Social History Hx Tobacco Use: No Hx Alcohol Use: No Hx Substance Use: No - Immunization History Hx Tetanus Toxoid Vaccination: Yes Hx Influenza Vaccination: No Hx Pneumococcal Vaccination: No Review Of Systems Except As Marked, All Systems Reviewed And Found Negative. Constitutional: Negative for: Fever, Chills Gastrointestinal: Positive for: Constipation. Negative for: Nausea, Vomiting, Abdominal Pain, Diarrhea Musculoskeletal: Negative for: Neck Pain, Back Pain Skin: Positive for: Lesions Neurological: Negative for: Weakness, Numbness Physical Exam - Physical Exam Appears: Well, Non-toxic, No Acute Distress Skin: Normal Color, Warm Gastrointestinal/Abdominal: Bowel Sounds (normal), Soft, No Distention, No Guarding, No Rebound, No Hernia, Other (well healing incision suprapubic area with small area of edema, bluish discoloration, mild tenderness. No evidence of cellulitis, wound draining. No proximal streaking.) Back: No CVA Tenderness Extremity: Normal ROM, No Deformity, No Swelling Neurological/Psych: Oriented x3, Normal Speech ED Course And Treatment O2 Sat by Pulse Oximetry: 98 Pulse Ox Interpretation: Normal Progress Note: On re-eval, pt is afebrile, hemodynamicaly stable. NOn-toxic,. Abd: benign, (-) guarding, (-) rebound. Skin: no evidence of cellulitis or abscess over insicion line. Pt advised and ref. to f/u with MANUAL ARTS THERAPIST in 2- 3 days for re-eval. return if any new changes. Disposition Counseled Patient/Family Regarding: Diagnosis, Need For Followup - Disposition Disposition: HOME/ ROUTINE Disposition Time: 19:00 Condition: STABLE Additional Instructions: Ice MIRALAX for constipation as need Follow up with MANUAL ARTS THERAPIST in 2-3 days for re-evaluation. Return to ED if nay worsening or new changes. Instructions: Vaginal After Print Language: BARBADIAN - Clinical Impression Clinical Impression: Wound, S/P
== END 2017-07-24 19:17 | disposition home or self-care (01) ==
LOC: C.ER 18:26
DX: Z48.89 Encounter for other specified surgical aftercare (principal)

== ENCOUNTER 2017-09-11 09:05 | Emergency (ER) | payer OTHER, SELFPAY ==
[2017-09-11 09:05] VITALS: BMI 32.5
[2017-09-11] MEDS ORDERED: Sodium Chloride 0.9% 1,000 ML IV ONE ×3 (09:59→13:39)
[2017-09-11 10:21] LABS: BASO % 0.3 % (0.0-2.0); EOS % 0.1 % (0.0-4.0); HEMOGLOBIN 11.8 g/dL (11.0-16.0); LYMPH # 1.1 K/uL (1.0-4.3); LYMPH % 7.8 % (20.0-40.0); MEAN CELL VOLUME 79.1 fL (81.0-99.0); MEAN CORPUSCULAR HGB CONC 34.1 g/dL (33.0-37.0); MEAN PLATELET VOLUME 8.8 fL (7.2-11.7); MONO % 7.2 % (0.0-10.0); NEUT # 11.9 K/uL (1.8-7.0); NEUT % 84.6 % (50.0-75.0); PLATELET COUNT 202 K/uL (130-400); RBC 4.37 Mil/uL (3.80-5.20); RED CELL DISTRIBUTION WIDTH 15.4 % (11.5-14.5); WHITE BLOOD COUNT 14.1 K/uL (4.8-10.8)
[2017-09-11 10:22] LABS: SQUAMOUS EPITHIAL 5 /hpf (0-5); URINE BACTERIA RARE (<OCC); URINE BILIRUBIN NEGATIVE (NEGATIVE); URINE BLOOD 2+ (NEGATIVE); URINE CLARITY Clear (Clear); URINE COLOR Yellow (YELLOW); URINE GLUCOSE (UA) NORMAL (Normal); URINE LEUKOCYTE ESTERASE NEG Leu/uL (Negative); URINE PROTEIN NEGATIVE (NEGATIVE); URINE UROBILINOGEN NORMAL mg/dL (0.2-1.0)
[2017-09-11 10:27] LABS: ALB/GLOB RATIO 1.1 (1.0-2.1); ALT/SGPT 70 U/L (9-52); AST/SGOT 52 U/L (14-36); BLOOD UREA NITROGEN 10 mg/dL (7-17); CALCIUM 9.2 mg/dl (8.6-10.4); GFR AFRICAN-AMERICAN > 60; GFR NON-AFRICAN AMERICAN > 60; LIPASE 81 U/L (23-300)
--- NOTE | 2017-09-11 10:59 | C.PDOC ---
History Of Present Illness [id number] female presents to ED for complaints of fever and minimal abdominal pain associated with vomiting and diarrhea that began 3 days ago. S/P delivery on June 29, 2017 with no complications. Denies chest pain, SOB, cough, vaginal bleeding, vaginal discharge, or urinary symptoms. Time Seen by Provider: 09/11/17 09:37 Chief Complaint (Nursing): Abdominal Pain History Per: Patient History/Exam Limitations: no limitations Onset/Duration Of Symptoms: Days (3) Current Symptoms Are (Timing): Still Present Radiation Of Pain To:: None Associated Symptoms: Fever, Nausea, Vomiting. denies: Chills Exacerbating Factors: None Alleviating Factors: None Last Bowel Movement: Today Recent travel outside of the [place]: No Abnormal Vaginal Bleeding: No Past Medical History Reviewed: Historical Data, Nursing Documentation, Vital Signs Vital Signs: Last Vital Signs Temp 100.4 F H 09/11/17 12:30 Pulse 98 H 09/11/17 12:30 Resp 18 09/11/17 12:30 BP 95/55 L 09/11/17 12:30 Pulse Ox 99 09/11/17 15:23 - Medical History PMH: Diabetes Surgical History: - [facility] Procedures EXTRACTION OF POC, LOW CERVICAL, OPEN APPROACH (06/29/17) LOW CERVICAL (10/11/12) Family History: States: Unknown Family Hx - Social History Hx Tobacco Use: No Hx Alcohol Use: No Hx Substance Use: No - Immunization History Hx Tetanus Toxoid Vaccination: Yes Hx Influenza Vaccination: No Hx Pneumococcal Vaccination: No Review Of Systems Except As Marked, All Systems Reviewed And Found Negative. Constitutional: Positive for: Fever Gastrointestinal: Positive for: Vomiting, Abdominal Pain, Diarrhea Physical Exam - Physical Exam Appears: Well, Non-toxic, No Acute Distress Skin: Normal Color, Dry Head: Atraumatic, Normacephalic Eye(s): bilateral: Normal Inspection, PERRL, EOMI Nose: Normal Oral Mucosa: Moist Chest: Symmetrical, No Tenderness Cardiovascular: Rhythm Regular Respiratory: Normal Breath Sounds, No Decreased Breath Sounds, No Rales, No Rhonchi, No Wheezing Gastrointestinal/Abdominal: Bowel Sounds, Soft, Tenderness (Epigastric), No Guarding, No Rebound Extremity: Normal ROM Extremity: Bilateral: Atraumatic, Normal Color And Temperature, Normal ROM Neurological/Psych: Oriented x3, Normal Speech, Normal Cognition Gait: Steady ED Course And Treatment - Laboratory Results Result Diagrams: 09/11/17 10:10 09/11/17 10:10 O2 Sat by Pulse Oximetry: 99 (RA) Pulse Ox Interpretation: Normal - CT Scan/US CT Abdomen/Pelvis Other Rad Studies (CT/US): Read By Radiologist, Radiology Report Reviewed CT/US Interpretation: PROCEDURE: CT Abdomen and Pelvis without intravenous contrast. HISTORY: Abdominal pain. COMPARISON: CT abdomen and pelvis dated 09/14/2016. TECHNIQUE: Multiple contiguous axial images were performed through the abdomen and pelvis with the use intravenous contrast. Subsequently , sagittal and coronal reformatted images were obtained. Radiation dose: Total exam DLP = 611 mGy-cm. This CT exam was performed using one or more of the following dose reduction techniques: Automated exposure control, adjustment of the mA and/or kV according to patient size, and/or use of iterative reconstruction technique. FINDINGS: LOWER THORAX: Unremarkable. LIVER: Prominent and enlarged liver with associated mild fatty infiltration. Relative increased attenuation within the periphery of the left hepatic lobe on series 3 , image 23 may represent some artifact. GALLBLADDER AND BILE DUCTS: Cholelithiasis. PANCREAS: Unremarkable. No gross lesion or ductal dilatation. SPLEEN: Unremarkable. ADRENALS: Unremarkable. No mass. KIDNEYS AND URETERS : Unremarkable. No hydronephrosis. No solid mass. VASCULATURE: Unremarkable. No aortic aneurysm. BOWEL: Underdistended and or mildly thickened descending colon, transverse colon, and distal ascending colon. Mild thickening of the cecum with some minimal fat stranding in the right lower abdomen. APPENDIX: Unremarkable. Normal appendix. PERITONEUM: Unremarkable. No free fluid. No free air. LYMPH NODES: Unremarkable. No enlarged lymph nodes. BLADDER: Thick -walled and or underdistended urinary bladder. Clinical correlation to exclude underlying cystitis. REPRODUCTIVE: Heterogeneous uterus and bilateral adnexa. BONES: No acute fracture. OTHER FINDINGS: Mild soft tissue stranding within the subcutaneous soft tissues in the anterior pelvis. IMPRESSION: 1. Underdistended and or mildly thickened descending colon, transverse colon, and distal ascending colon. Mild thickening of the cecum with some minimal fat stranding in the right lower abdomen. These changes may be the sequelae of acute infectious and or inflammatory changes. Clinical correlation. 2. Thick- walled and or underdistended urinary bladder. Clinical correlation to exclude underlying cystitis. 3. Cholelithiasis. 4. Prominent and enlarged liver with associated mild fatty infiltration. Medical Decision Making Medical Decision Making: Administerd pepcid, reglan, toradol, zofran, and IV fluids. Ordered bloodwork, urinalysis, and Abdomen&Pelvis CT. Impression: - Abdominal Pain patient states improvement, negative orthostatics, will discharge patient home. Patient bp 100/60 and currently asymptomatic, no fever, no tachycardic. Patient discharged home to follow up with pmd in 2 days. Disposition Counseled Patient/Family Regarding: Studies Performed, Diagnosis, Need For Followup, Rx Given - Disposition Referrals: [facility] [Outside] Disposition: HOME/ ROUTINE Disposition Time: 15:21 Condition: STABLE Additional Instructions: follow up with medical clinic in 2 days call to make an appointment take medications as prescribed return to ER if symptoms worsens or progress rest, return to ER if symptoms returns Prescriptions: Amoxicillin/Clavulanate [Augmentin 875 MG-125 MG] 1 tab PO BID 10 Days #20 tab Naproxen [Naprosyn] 500 mg PO BID PRN #16 tab PRN Reason: Pain, Moderate (4-7) Ondansetron ODT [Zofran ODT] 4 mg PO TID PRN #12 odt PRN Reason: Nausea/Vomiting Instructions: Acute Abdomen (Belly Pain), Adult (DC) Forms: Gen Discharge Inst Slovak, [facility] (Slovak) Print Language: BOTSWANAN - Clinical Impression Clinical Impression: Abdominal pain, Colitis - Scribe Statement The provider has reviewed the documentation as recorded by the Andra Syed All medical record entries made by the Andra were at my direction and personally dictated by me. I have reviewed the chart and agree that the record accurately reflects my personal performance of the history, physical exam, medical decision making, and the department course for this patient. I have also personally directed, reviewed, and agree with the discharge instructions and disposition.
[2017-09-11] MEDS ORDERED: Iodixanol 320 MG/ML 100 ML BOTTLE IV ONE (11:04)
[2017-09-11 11:06] LABS: ANISOCYTOSIS SLIGHT; BANDS 7 % (0-2); LYMPHOCYTE 7 % (20-40); MONOCYTE 7 % (0-10); NEUTROPHIL 79 % (50-75); PLATELET ESTIMATE NORMAL (NORMAL); TOTAL CELLS COUNTED 100
[2017-09-11 11:07] LABS: HYPOCHROMIC SLIGHT; LARGE PLATELETS PRESENT; POLYCHROMIC SLIGHT
[2017-09-11 12:34] VITALS: RESP 18
[2017-09-11] MEDS ORDERED: Sodium Chloride 0.9% 1,000 ML ONE ×2 (12:41→13:40)
--- NOTE | 2017-09-11 12:44 | CT ---
PROCEDURE: CT Abdomen and Pelvis without intravenous contrast HISTORY: Abdominal pain COMPARISON: CT abdomen and pelvis dated 09/14/2016 TECHNIQUE: Multiple contiguous axial images were performed through the abdomen and pelvis with the use intravenous contrast. Subsequently, sagittal and coronal reformatted images were obtained. Radiation dose: Total exam DLP = 611 mGy-cm. This CT exam was performed using one or more of the following dose reduction techniques: Automated exposure control, adjustment of the mA and/or kV according to patient size, and/or use of iterative reconstruction technique. FINDINGS: LOWER THORAX: Unremarkable. LIVER: Prominent and enlarged liver with associated mild fatty infiltration. Relative increased attenuation within the periphery of the left hepatic lobe on series 3, image 23 may represent some artifact. GALLBLADDER AND BILE DUCTS: Cholelithiasis. PANCREAS: Unremarkable. No gross lesion or ductal dilatation. SPLEEN: Unremarkable. ADRENALS: Unremarkable. No mass. KIDNEYS AND URETERS: Unremarkable. No hydronephrosis. No solid mass. VASCULATURE: Unremarkable. No aortic aneurysm. BOWEL: Underdistended and or mildly thickened descending colon, transverse colon, and distal ascending colon. Mild thickening of the cecum with some minimal fat stranding in the right lower abdomen. APPENDIX: Unremarkable. Normal appendix. PERITONEUM: Unremarkable. No free fluid. No free air. LYMPH NODES: Unremarkable. No enlarged lymph nodes. BLADDER: Thick-walled and or underdistended urinary bladder. Clinical correlation to exclude underlying cystitis. REPRODUCTIVE: Heterogeneous uterus and bilateral adnexa. BONES: No acute fracture. OTHER FINDINGS: Mild soft tissue stranding within the subcutaneous soft tissues in the anterior pelvis. IMPRESSION: 1. Underdistended and or mildly thickened descending colon, transverse colon, and distal ascending colon. Mild thickening of the cecum with some minimal fat stranding in the right lower abdomen. These changes may be the sequelae of acute infectious and or inflammatory changes. Clinical correlation. 2. Thick-walled and or underdistended urinary bladder. Clinical correlation to exclude underlying cystitis. 3. Cholelithiasis. 4. Prominent and enlarged liver with associated mild fatty infiltration.
[2017-09-11] MEDS ORDERED: Piperacillin/Tazobact 3.375 GM in Sodium Chloride 100 ML IVPB STA (13:05)
[2017-09-11] MEDS ORDERED: Piperacillin/Tazobact 3.375 gm 100 ML IVPB ONE (13:40)
[2017-09-11 15:43] VITALS: BP 95/62; PULSE 99; TEMP 98.7; O2SAT 97
== END 2017-09-11 15:43 | disposition home or self-care (01) ==
LOC: C.ER 09:05
DX: K52.9 Noninfective gastroenteritis and colitis, unspecified (principal); R10.13 Epigastric pain
CPT/HCPCS: 74177; 80053; 81001; 83690; 85025; 96361; 96365; 96375; 99285; J1885; J2543; J2765; J7040; J7050; Q9967

== ENCOUNTER 2018-06-12 20:14 | Emergency (ER) | payer SELFPAY ==
[2018-06-12 20:14] VITALS: BMI 29.2
[2018-06-12] MEDS ORDERED: Sodium Chloride 0.9% 1,000 ML IV ONE (20:47)
--- NOTE | 2018-06-12 20:47 | C.PDOC ---
History Of Present Illness 33 year old female had US done in 02/2018 positive for gallstone presents to the ER with RUQ pain for the past 2 weeks. Patient states the pain feels similar to her gallstone pain. She usually has pain but notes it has worsened over the past 2 weeks. Denies fever or vomiting. Hx of in the past. Time Seen by Provider: 06/12/18 20:39 Chief Complaint (Nursing): Abdominal Pain History Per: Patient History/Exam Limitations: no limitations Onset/Duration Of Symptoms: Days (2 weeks) Current Symptoms Are (Timing): Still Present Location Of Pain/Discomfort: RUQ Radiation Of Pain To:: None Quality Of Discomfort: Unable To Describe Associated Symptoms: denies: Vomiting Exacerbating Factors: None Alleviating Factors: None Recent travel outside of the [place]: No Past Medical History Reviewed: Historical Data, Nursing Documentation, Vital Signs Vital Signs: Last Vital Signs Temp 97.9 F 06/12/18 20:21 Pulse 81 06/12/18 20:21 Resp 22 06/12/18 20:21 BP 115/80 06/12/18 20:21 Pulse Ox 99 06/12/18 20:21 - Medical History PMH: Diabetes, Gall Bladder Disease Denies: Depression, HTN Surgical History: - [facility] Procedures EXTRACTION OF POC, LOW CERVICAL, OPEN APPROACH (06/29/17) LOW CERVICAL (10/11/12) Family History: States: Unknown Family Hx - Social History Hx Tobacco Use: No Hx Alcohol Use: No Hx Substance Use: No - Immunization History Hx Tetanus Toxoid Vaccination: Yes Hx Influenza Vaccination: No Hx Pneumococcal Vaccination: No Review Of Systems Except As Marked, All Systems Reviewed And Found Negative. Gastrointestinal: Positive for: Abdominal Pain Physical Exam - Physical Exam Appears: Non-toxic Skin: Normal Color, Warm, Dry Head: Atraumatic, Normacephalic Eye(s): bilateral: Normal Inspection Oral Mucosa: Moist Chest: Symmetrical, No Tenderness Cardiovascular: Rhythm Regular Respiratory: Other (NARD) Gastrointestinal/Abdominal: Soft, Tenderness (Mild RUQ), No Guarding, No Rebound Back: No CVA Tenderness Neurological/Psych: Oriented x3, Normal Speech ED Course And Treatment - Laboratory Results Result Diagrams: 06/12/18 20:55 06/12/18 20:55 O2 Sat by Pulse Oximetry: 99 (Room air) Pulse Ox Interpretation: Normal Progress - Re-Evaluation Re-evaluation Note: 06/12/18 22:49 APPEARS COMFORTABLE NAD NO S/S ACUTE ABD. US RAD REPORT NO ACUTE SHAHAB - Data Reviewed Data Reviewed: Lab, Diagnostic imaging, Old records Medical Decision Making Medical Decision Making: Plan: * Blood work * US * UA * Morphine * Pepcid * IV fluid * Zofran Disposition Counseled Patient/Family Regarding: Studies Performed, Diagnosis, Need For Followup, Rx Given - Disposition Referrals: [facility] [Outside] [facility] [Outside] Disposition: HOME/ ROUTINE Disposition Time: 22:50 Condition: IMPROVED Prescriptions: Ondansetron ODT [Zofran ODT] 4 mg PO TID PRN #12 odt PRN Reason: Nausea/Vomiting oxyCODONE/Acetaminophen [Percocet 5/325 mg Tab] 1 ea PO QID #8 tab Instructions: Gallstones (DC) Forms: [employer] (Arabic) - Clinical Impression Clinical Impression: Biliary colic - Scribe Statement The provider has reviewed the documentation as recorded by the Scriblaurita Patricia All medical record entries made by the Scribe were at my direction and personally dictated by me. I have reviewed the chart and agree that the record accurately reflects my personal performance of the history, physical exam, medical decision making, and the department course for this patient. I have also personally directed, reviewed, and agree with the discharge instructions and disposition.
[2018-06-12 20:52] LABS: SQUAMOUS EPITHIAL 1 /hpf (0-5); URINE BACTERIA RARE (<OCC); URINE BILIRUBIN NEGATIVE (NEGATIVE); URINE BLOOD NEGATIVE (NEGATIVE); URINE CLARITY Hazy (Clear); URINE COLOR Yellow (YELLOW); URINE GLUCOSE (UA) NORMAL (Normal); URINE LEUKOCYTE ESTERASE NEG Leu/uL (Negative); URINE PROTEIN NEGATIVE (NEGATIVE); URINE UROBILINOGEN NORMAL mg/dL (0.2-1.0)
[2018-06-12 20:54] LABS: HCG,QUALITATIVE URINE NEGATIVE (NEGATIVE)
[2018-06-12] MEDS ORDERED: Sodium Chloride 0.9% 0 ML ONE (20:59)
[2018-06-12 21:00] LABS: BASO # 0.1 K/uL (0.0-0.2); BASO % 0.7 % (0.0-2.0); EOS # 0.2 K/uL (0.0-0.7); EOS % 1.6 % (0.0-4.0); HEMOGLOBIN 12.8 g/dL (11.0-16.0); LYMPH # 3.7 K/uL (1.0-4.3); LYMPH % 34.2 % (20.0-40.0); MEAN CELL VOLUME 82.9 fL (81.0-99.0); MEAN CORPUSCULAR HGB CONC 33.7 g/dL (33.0-37.0); MEAN PLATELET VOLUME 8.6 fL (7.2-11.7); MONO # 0.5 K/uL (0.0-0.8); NEUT # 6.4 K/uL (1.8-7.0); NEUT % 58.5 % (50.0-75.0); NRBC % 0.1 % (0.0-2.0); RBC 4.59 Mil/uL (3.80-5.20); RED CELL DISTRIBUTION WIDTH 13.1 % (11.5-14.5); WHITE BLOOD COUNT 10.9 K/uL (4.8-10.8)
[2018-06-12] MEDS ORDERED: Sodium Chloride 0.9% 1,000 ML ONE (21:10)
[2018-06-12 21:11] LABS: ALB/GLOB RATIO 1.5 (1.0-2.1); ALBUMIN 4.7 g/dL (3.5-5.0); ALT/SGPT 27 U/L (9-52); AST/SGOT 25 U/L (14-36); BLOOD UREA NITROGEN 15 mg/dL (7-17); CALCIUM 9.1 mg/dl (8.6-10.4); GFR NON-AFRICAN AMERICAN > 60; LIPASE 126 U/L (23-300)
[2018-06-12 23:50] VITALS: BP 122/78; PULSE 88; RESP 20; TEMP 98; O2SAT 97
--- NOTE | 2018-06-13 09:54 | US ---
Right upper quadrant abdominal ultrasound HISTORY: Abdominal pain. Comparison: Ultrasound dated 03/11/2018 Technique: Real-time sonography was performed through the right upper quadrant of the abdomen. Findings: Liver: 18 centimeters in length. Prominent. Increased echogenicity of the hepatic parenchymal cortex suggestive for fatty infiltration versus hepatic parenchymal disease. Clinical correlation. Gallbladder: Cholelithiasis. Multiple calculi. For example, prominent calculi near the neck measure up to 6 millimeters. Normal wall thickness of 2.4 millimeters. Negative sonographic Riggs's sign. Common bile duct measures 4 millimeters. Limited visualization of the pancreas. Visualized aorta and IVC are preserved. Right kidney: 11.5 x 3.9 x 4.6 centimeters. No calculi or hydronephrosis. Impression: 1. Cholelithiasis with multiple calculi near the neck of the gallbladder. Normal wall thickness of 2.4 millimeters. Negative sonographic Riggs's sign. Clinical correlation. 2. Prominent liver measuring 18 centimeters in length with associated increased echogenicity of the hepatic parenchymal cortex suggestive for fatty infiltration versus hepatic parenchymal disease. Clinical correlation. 3. Limited visualization of the pancreas. A preliminary report was generated at 10:46 p.m. on 06/12/[address] Dilip Mitchell from [facility].
== END 2018-06-12 22:55 | disposition home or self-care (01) ==
LOC: C.ER 20:14
DX: K80.70 Calculus of gallbladder and bile duct without cholecystitis without obstruction (principal)
CPT/HCPCS: 76705; 80053; 81001; 83690; 84703; 85025; 96374; 96375; 99285; J2270; J2405; J7030

== ENCOUNTER 2018-08-19 09:46 | Outpatient (CLI) | payer SELFPAY | END 2018-08-19 09:47 | disposition home or self-care (01) | LOC: C.USIC 09:47 | DX: R10.32 Left lower quadrant pain (principal) ==